=== PATIENT | female | born 1970 | race African-American/Black ===

== ENCOUNTER 2016-09-20 19:28 | Emergency (ER) | payer BC ==
[~2016-09-20 19:28] MED LIST: ADDEROL PO; CIPRO750 MG PO; COL250 PO; FLAGYL500 MG PO; LAC30L PO; LEXAPRO10 MG PO; NORCO1 TA1 PO; PEPL PO
[2016-09-20 19:41] VITALS: BP 155/111
== END 2016-09-20 20:55 | disposition left against medical advice (07) ==
LOC: ED 19:28
DX: Z53.21 Procedure and treatment not carried out due to patient leaving prior to being seen by health care provider (principal)